=== PATIENT | female | born 1975 | race Two or more races ===

== ENCOUNTER 2019-03-18 09:32 | Outpatient (CLI) | payer OTHER | END 2019-03-18 11:36 | disposition home or self-care (01) | LOC: SONOGRAMA 09:32 | DX: E04.1 Nontoxic single thyroid nodule (principal) ==

== ENCOUNTER 2025-01-29 09:04 | Outpatient (CLI) | payer OTHER | END 2025-01-29 09:22 | disposition home or self-care (01) | LOC: SONOGRAMA 09:04 | DX: R10.13 Epigastric pain (principal) ==